=== PATIENT | male | born 1985 | race Caucasian/White ===

== ENCOUNTER 2016-12-10 12:58 | Emergency (ER) | payer OTHER ==
[~2016-12-10] VITALS: Wt 93.4 kg
[2016-12-10] MEDS ORDERED: IBUPROFEN 800 MG TAB PO ONE (13:30)
--- NOTE | 2016-12-10 13:31 | ERD ---
ER Documentation Chief Complaint Chief Complaint SWELLING ON LEFT AXILA, ONSET 4 WEEKS HPI This is a 31-year-old male who presents the emergency department today complaining of pain and full in ball in his left armpit for the last 2-4 weeks. Patient states that he had been doing climbing and hiking and is felt some pain since that time. States he has not taken any medication for the pain. Denies any fevers or chills. Denies any other significant trauma. States that he did get sick couple of weeks ago when he got the flu shot. ROS All systems reviewed and are negative except as per history of present illness. Medications Home Meds Active Scripts Prednisone* (Prednisone*) 20 Mg Tab, 40 MG PO DAILY for 5 Days, TAB Prov:ADIA CAMERON PA-C 12/10/16 Cephalexin* (Keflex*) 500 Mg Capsule, 500 MG PO QID for 7 Days, CAP Prov:ADIA CAMERON PA-C 12/10/16 Ibuprofen* (Motrin*) 600 Mg Tab, 600 MG PO Q6, #30 TAB Prov:ADIA CAMERON PA-C 12/10/16 Allergies Allergies: Coded Allergies: No Known Allergy (Unverified , 12/10/16) Physical Exam Vitals Vital Signs Date Time Temp Pulse Resp B/P Pulse Ox O2 Delivery O2 Flow Rate FiO2 12/10/16 13:01 97.5 55 18 128/70 98 Physical Exam Const: NAD Head: Atraumatic Eyes: Normal Conjunctiva ENT: Normal External Ears, Nose and Mouth. Neck: Full range of motion..~ No meningismus. Resp: Clear to auscultation bilaterally Cardio: Regular rate and rhythm, no murmurs Abd: Soft, non tender, non distended. Normal bowel sounds Skin: No petechiae or rashes Back: No midline or flank tenderness Ext: Left axilla with no obvious deformity. Evidence of what appears to be swollen lymph node. Tenderness to palpation. No erythema or warmth. Neur: Awake and alert Psych: Normal Mood and Affect Results 24 hrs Current Medications Medications (Trade) Dose Ordered Sig/Lulu Route PRN Reason Start Time Stop Time Status Last Admin Dose Admin Ibuprofen (Motrin) 800 mg ONCE ONCE PO 12/10/16 13:30 12/10/16 13:31 DC 12/10/16 13:29 DIAGNOSTIC IMAGING REPORT Patient: AMINAH WRAY : 1985 Age: 31 Sex: M MR #: [id number] DOS: 12/10/16 0000 Ordering MD: ADIA CAMERON PA-C Location: [facility] Room/Bed: PROCEDURE: Ultrasound soft tissue CLINICAL INDICATION: Lump in the left axilla TECHNIQUE: Multiple sonographic images of the patient's area of palpable abnormality in the left axilla were obtained with madden scale and color Doppler. Sonogram of the contralateral right axilla were also obtained for comparison. The images were viewed on a PACS workstation. COMPARISON: None FINDINGS: There is a solid - appearing round lesion within the superficial soft tissues deep to the area of palpable abnormality in the left axilla measuring 1.8 x 1.1 cm in maximum axial dimensions. It is superficial to the likely pectoralis muscle and has mild vascular flow along its periphery. The lesion is an isoechoic to the adjacent muscle. No surrounding fluid or hyperemia is identified. No similar lesion is identified within the subcutaneous soft tissues of the right axilla. IMPRESSION: 1.8 cm solid - appearing round lesion within the superficial soft tissues of the left axilla is nonspecific. This may be an enlarged axillary lymph node which has lost its fatty hilum. If the lesion persists and / or histologic correlation is indicated, the lesion is amenable to ultrasound-guided biopsy. RPTAT: EE Physician Dinesh Date Time Electronically viewed and signed by Thiago Nicole Physician on 12/10/2016 14:40 RA/ CC: ADIA CAMERON PA-C Procedures/MDM This 31-year-old male who presents the emergency department today complaining of some pain and swelling in his left armpit. On physical exam patient appears to have a swollen lymph node. There is no erythema or warmth. There is no superficial fluctuance. Given duration of symptoms I did have Dr. Kaplan see and evaluate the patient he feels that a soft tissue ultrasound will be beneficial. Soft tissue ultrasound is a 1.8 cm solid appearing rounded lesion within the superficial soft tissues of the left axilla that is nonspecific. This may be an enlarged axillary lymph node which is lost its fatty hilum. If the lesion for the logic correlation is indicated the lesion is amenable to ultrasound- guided biopsy. There is no surrounding fluid or hyperemia identified. Superficial to the likely pectoralis muscle and has mild vascular flow along its periphery. There is no similar lesion identified within the subcutaneous soft tissues of the right axilla. Symptoms at this time is consistent with swelling and axillary mass of uncertain etiology Given Motrin here in the emergency department and pain improved. The findings with Dr. Kaplan and he feels it patient may potentially benefit from prednisone and Keflex to treat local inflammatory reaction. Patient was given a prescription for both of these for home as well as Motrin. He was [place] and likely biopsy. Patient understood.. At this time the patient is stable for discharge and outpatient management. Patient should follow up with their PCP in the next 1-2 days. They may return to the emergency department sooner for any persistent or worsening of symptoms. Patient understood and agreed with the plan. Departure Diagnosis: Primary Impression: Swelling Additional Impression: Mass in armpit Laterality: left Qualified Code: R22.32 - Mass of left axilla Condition: ADIA Cervantes PA-C Dec 10, 2016 13:31
--- NOTE | 2016-12-10 14:41 | RADRPT ---
PROCEDURE: Ultrasound soft tissue CLINICAL INDICATION: Lump in the left axilla TECHNIQUE: Multiple sonographic images of the patient's area of palpable abnormality in the left a xilla were obtained with madden scale and color Doppler. Sonogram of the contralateral right axilla we re also obtained for comparison. The images were viewed on a PACS workstation. COMPARISON: None FINDINGS: There is a solid - appearing round lesion within the superficial soft tissues deep to the area of pa lpable abnormality in the left axilla measuring 1.8 x 1.1 cm in maximum axial dimensions. It is supe rficial to the likely pectoralis muscle and has mild vascular flow along its periphery. The lesion i s an isoechoic to the adjacent muscle. No surrounding fluid or hyperemia is identified. No similar lesion is identified within the subcutaneous soft tissues of the right axilla. IMPRESSION: 1.8 cm solid - appearing round lesion within the superficial soft tissues of the left axilla is nons pecific. This may be an enlarged axillary lymph node which has lost its fatty hilum. If the lesion p ersists and / or histologic correlation is indicated, the lesion is amenable to ultrasound-guided bi opsy. RPTAT: EE Physician Dinesh Date Time Electronically viewed and signed by Physician Dinesh on 12/10/2016 14:40 /
[2016-12-10] MEDS ORDERED: IBUP-1542 PO (14:51)
[2016-12-10] MEDS ORDERED: PRED20TA PO (14:52)
[2016-12-10] MEDS ORDERED: CEPH-443 PO (14:52)
== END 2016-12-10 15:27 | disposition home or self-care (01) ==
LOC: FTE 12:58
DX: R22.32 Localized swelling, mass and lump, left upper limb (principal)
CPT/HCPCS: 76536